=== PATIENT | female | born 1955 | race Caucasian/White ===

== ENCOUNTER 2019-06-21 08:54 | Emergency (ER) | payer MEDICARE ==
--- OUTSIDE RECORDS SUMMARY | 2019-06-21 09:09 | XMS REPORT | Continuity of Care Document ---
:1955 External Reference #:[id number] Author Name Lopez Meka Care Team Providers Name Role Phone Mickey Ortez MD Primary Care Physician Unavailable Payers Date Identification Numbers Payment Provider Subscriber Effective: 2004 Policy Number: [id number] Medicare Sasha Tomlin PayID: [id number] [address] [place] [address] Policy Number: [id number] [facility] Sasha Tomlin PayID: [id number] [address] [place] [address] Problems Active Problems Provider Date Postoperative Wound Closure Encounter Sandro Gonzalez M.D., [facility] Onset: 12/26/2013 Abnormal results of cardiovascular Bucky Guzman M.D. Onset: 01/22/2014 function studies Benign essential hypertension Bucky Guzman M.D. Onset: 01/22/2014 Chest pain Bucky Guzman M.D. Onset: 01/22/2014 Obstructive sleep apnea syndrome Lexii Diego MD Onset: 04/03/2015 Obesity Lexii Diego MD Onset: 10/03/2015 Family History Date Family Member(s) Observation Comments Onset: (03/18/2016) General Coronary Artery Disease Brother with ME's (CAD) before age 50 , 1 brother and sister alive and well General Positive pressure therapy 2 brothers use Father Sleep Apnea 88 Cabg 71 Onset: (age 71 Mother ME of ME 71 Years) Siblings 3 Social History Type Date Description Comments Sex Unknown Marital Status Lives With Spouse no children. homemaker. Occupation Homemaker Tobacco Use Start: Unknown Never Smoked Cigarettes Smoking Status Reviewed: 05/22/19 Never Smoked Cigarettes ETOH Use Denies alcohol use Tobacco Use Start: Unknown Patient has never smoked Recreational Drug Use Denies Drug Use Exercise Type/Frequency Exercises regularly Exercise Type/Frequency Does aerobics 3 times a Water aerobics and week walking in the water Allergies, Adverse Reactions, Alerts Description No Known Drug Allergies Medications Active Medications SIG Qnty Indications Ordering Date Provider Crestor 1 by mouth every 90tabs Bucky Cohen 04/12/2018 5mg Tablets day Viet Guzman Bupropion HCL ER (SR) 300mg - 1 tablet Unknown 10/01/2016 by mouth once a Tablets ER 12HR day Aspir-81 1 by mouth bid Bucky Cohen 03/18/[address] Thomas M.D. Minitran 1 to chest wall 90units R07.9 Bucky Cohen 03/18/2016 0.2mg/HR Patches every morning Viet Guzman 24HR off every night. uses during exercise only 10/05/17 Loratadine 1 po qd prn Bucky Cohen 11/14/2013 10mg Tablets Viet Guzman Gabapentin 2 po tid 180caps Jillian Leon 12/06/2012 300mg Capsules Viet Galvez Ranitidine HCL take one capsule Unknown 150mg by mouth twice a Capsules day, as needed. 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 60tabs Unknown Tablets Verapamil HCL ER 1 tab po daily Unknown 240mg Tablets ER Spironolactone 1 tab po bid Unknown 50mg Tablets 1Hydrochlorothiazide 1 tab po daily Unknown 25mg Tablets History Medications Nitro-Dur 1 patch every day Unknown 10/01/2016 - 0.2mg/HR on in the in the 03/07/2017 Patches 24HR morning, off in the at night Glucosamine 1 by mouth every Bucky Vicki 03/18/2016 - Chondroitin 500 day Viet Guzman 09/30/2018 Complex 500Comp Capsules Tramadol 1-2 tablets every 6 30tabs Sloane Sanon, 06/17/2015 - Hydrochloride/Acetamin hours as needed M.DJosiah 03/17/2016 ophen pain 37.5-325mg Tablets Levaquin 1 by mouth every 10tabs Sloane Snaon, 12/26/2014 - 500mg Tablets day M.DJosiah 03/17/2016 Amlodipine Besylate 1 po qd 3 days 4tabs Bucky Cohen 10/12/2013 - 10mg before and day of Viet Guzman 12/25/2013 Tablets stress test Co Q-10 1 by mouth every Unknown - 200mg Capsules day 03/07/2017 Vitamin E Complex 1 po qd Unknown - 400Unit 04/11/2018 Capsules Crestor 1 by mouth every 90tabs Unknown - 20mg Tablets day 04/12/2018 Protriptyline HCL 1 tab by mouth 60tabs Jillian Galvez, - 10mg twice a day(pt is M.DJosiah 03/07/2017 Tablets no longer taking) Loradamed 1 tab po daily Unknown - 10mg Tablets 11/14/2013 Colace 1 po qd 60caps Unknown - 50mg Capsules 10/05/2017 Cranberry Concentrate 1 tab daily Unknown - 09/30/2018 500mg Capsules Cinnamon 3 tabs bid Unknown - 500mg Tablets 03/17/2016 Hyoscyamine Sulfate po tid prn 50tabs Unknown - sublingual 03/17/2016 0.125mg Tablets Sub Protriptyline HCL 2 tabs po bid Unknown - 5mg 08/21/2013 Tablets Pantoprazole Sodium 1 tab po daily Unknown - 40mg 04/11/2018 Tablets Fluoxetine HCL 1 tab po daily Unknown - 20mg 07/31/2014 Capsules Medications Administered in Office Medication SIG Qnty Indications Ordering Provider Date Depomedrol 40MG Sloane Sanon M.D. 10/27/2018 Injection Depomedrol 20MG Iva Escobar PA 12/09/2009 Injection Immunizations CPT Code Status Date Vaccine Lot # [id number] Given 08/19/2015 Fluvirin Im 3Yrs And Older Vital Signs Date Vital Result Comment 05/22/2019 9:18am Height 64 inches 5'4" Weight 211.00 lb BP Systolic 142 mmHg BP Diastolic 84 mmHg Respiratory Rate 16 /min Body Temperature 98.0 F Pain Level 5 BMI (Body Mass Index) 36.2 kg/m2 01/24/2019 8:31am Height 64 inches 5'4" Weight 205.12 lb Shoes/Clothes Heart Rate 96 /min BP Systolic Sitting 140 mmHg ule Large cuff BP Diastolic Sitting 80 mmHg ule Large cuff BP Systolic Standing 134 mmHg ule lg cuff BP Diastolic Standing 78 mmHg ule lg cuff BP Systolic Lying Down 118 mmHg la repeat sitting BP Diastolic Lying Down 72 mmHg la repeat sitting BMI (Body Mass Index) 35.2 kg/m2 Ejection Fraction REF 55-60% Stress test 05/13/2016 10/27/2018 10:46am Height 64 inches 5'4" Weight 211.25 lb Heart Rate 75 /min BP Systolic 126 mmHg BP Diastolic 80 mmHg Respiratory Rate 18 /min Pain Level 9 BMI (Body Mass Index) 36.3 kg/m2 09/30/2018 9:19am Height 64 inches 5'4" Weight 202.00 lb Heart Rate 80 /min reg BP Systolic Sitting 142 mmHg right lg cuff BP Diastolic Sitting 76 mmHg right lg cuff Respiratory Rate 16 /min BMI (Body Mass Index) 34.7 kg/m2 04/12/2018 8:41am Height 64 inches 5'4" Weight 197.25 lb w/shoes Heart Rate 84 /min BP Systolic Sitting 140 mmHg lue lg cuff BP Diastolic Sitting 80 mmHg lue lg cuff BMI (Body Mass Index) 33.9 kg/m2 Ejection Fraction 60-65% echo 04/28/2016 10/05/2017 8:04am Height 64 inches 5'4" Weight 202.38 lb with shoes Heart Rate 72 /min BP Systolic Sitting 120 mmHg Rue reg cuff BP Diastolic Sitting 78 mmHg Rue reg cuff Respiratory Rate 16 /min O2 % BldC Oximetry 97 % On Ra BMI (Body Mass Index) 34.7 kg/m2 03/08/2017 8:33am Height 64 inches 5'4" Weight 203.00 lb with shoes Heart Rate 90 /min BP Systolic Sitting 122 mmHg LA lrg cuff BP Diastolic Sitting 80 mmHg LA lrg cuff BMI (Body Mass Index) 34.8 kg/m2 Ejection Fraction 60% - 65% echo 04/28/17 10/02/2016 8:41am Height 64 inches 5'4" Weight 206.00 lb per pt Heart Rate 85 /min BP Systolic Sitting 126 mmHg BP Diastolic Sitting 68 mmHg Respiratory Rate 14 /min O2 % BldC Oximetry 96 % BMI (Body Mass Index) 35.4 kg/m2 04/07/2016 2:26pm Height 64 inches 5'4" Weight 215.00 lb with shoes Heart Rate 78 /min BP Systolic Sitting 128 mmHg LA lrg cuff BP Diastolic Sitting 66 mmHg LA lrg cuff BP Systolic Standing 132 mmHg LA lrg cuff BP Diastolic Standing 70 mmHg LA lrg cuff Respiratory Rate 16 /min BMI (Body Mass Index) 36.9 kg/m2 Ejection Fraction 60-65% 11/29/13 03/18/2016 2:58pm Height 64 inches 5'4" Weight 216.00 lb w/shoes Heart Rate 74 /min BP Systolic Sitting 148 mmHg LA lg cuff BP Diastolic Sitting 84 mmHg LA lg cuff BMI (Body Mass Index) 37.1 kg/m2 Ejection Fraction 60-65% [place] 11/29/13 10/03/2015 8:19am Height 64 inches 5'4" Weight 215.00 lb Heart Rate 89 /min BP Systolic Sitting 136 mmHg BP Diastolic Sitting 78 mmHg Respiratory Rate 18 /min O2 % BldC Oximetry 96 % BMI (Body Mass Index) 36.9 kg/m2 07/15/2015 9:35am Height 64 inches 5'4" Weight 210.00 lb Respiratory Rate 18 /min Body Temperature 98.7 F Pain Level 3 BMI (Body Mass Index) 36.0 kg/m2 06/17/2015 11:37am Height 64 inches 5'4" Weight 210.00 lb Pain Level 4 ranges from 1 to 8 BMI (Body Mass Index) 36.0 kg/m2 04/03/2015 8:04am Height 64 inches 5'4" Weight 213.44 lb BP Systolic 80 mmHg BP Systolic Sitting 134 mmHg BP Diastolic Sitting 70 mmHg Respiratory Rate 18 /min O2 % BldC Oximetry 96 % BMI (Body Mass Index) 36.6 kg/m2 01/21/2015 2:18pm Height 64 inches 5'4" Weight 200.00 lb Pain Level 3 BMI (Body Mass Index) 34.3 kg/m2 12/31/2014 1:57pm Height 64 inches 5'4" Weight 200.00 lb Pain Level 2 BMI (Body Mass Index) 34.3 kg/m2 12/17/2014 4:01pm Height 64 inches 5'4" Weight 200.00 lb Heart Rate 79 /min BP Systolic 136 mmHg BP Diastolic 83 mmHg Pain Level 5 BMI (Body Mass Index) 34.3 kg/m2 08/27/2014 12:06pm Height 64 inches 5'4" Weight 200.00 lb Heart Rate 92 /min BP Systolic Sitting 142 mmHg BP Diastolic Sitting 78 mmHg Respiratory Rate 18 /min O2 % BldC Oximetry 97 % BMI (Body Mass Index) 34.3 kg/m2 Neck Circumference in inches 13.25 08/01/2014 11:00am Height 64 inches 5'4" Weight 195.25 lb Heart Rate 86 /min BP Systolic Sitting 138 mmHg LA lg cuff BP Diastolic Sitting 82 mmHg LA lg cuff Respiratory Rate 14 /min BMI (Body Mass Index) 33.5 kg/m2 01/22/2014 1:07pm Heart Rate 96 /min BP Systolic Sitting 128 mmHg BP Diastolic Sitting 76 mmHg 12/26/2013 3:24pm Height 64 inches 5'4" Weight 201.00 lb with shoes Heart Rate 82 /min BP Systolic Sitting 130 mmHg LA reg cuff BP Diastolic Sitting 82 mmHg LA reg cuff BP Systolic Standing 128 mmHg LA reg cuff BP Diastolic Standing 80 mmHg LA reg cuff Respiratory Rate 17 /min BMI (Body Mass Index) 34.5 kg/m2 08/21/2013 8:43am Heart Rate 96 /min BP Systolic Sitting 124 mmHg BP Diastolic Sitting 78 mmHg Respiratory Rate 18 /min Results Test Date Facility Test Result H/L Range Note Surgical Pathology 12/21/2014 [facility] S RUN DATE: DRIVE 12/25/ <[place] [address] NOTE> [phone] Wound 12/21/2014 [facility] Wound/Misc (SEE NOTE) 2, 3 Culture/Sensi [address] [place] [address] Stain [phone] Laboratory test 12/21/2014 [facility] Acid Fast (SEE NOTE) [address] [place] [address] Direct [phone] Anaerobic Culture (SEE NOTE) 5 Fungal Cult Skin/Hair/Nails (SEE NOTE) 6 Fungus Culture 12/21/2014 [facility] Fungal Cult (SEE NOTE) [address] Skin/[place]air/[place] [address] [phone] Fungus Culture 12/21/2014 [facility] Fungal Cult (SEE NOTE) [address] Skin/[place] [address] [phone] Laboratory 12/21/2014 [facility] Mycobacterial See Comment Normal 9 test finding [address] [place] [address] [phone] CBC No Diff 12/15/2013 [facility] White Blood Count 6.1 10^3/uL 4.[address] [place] [address] .8 [phone] Red Blood Count 4.92 10^6/uL 4.0-5.4 Hemoglobin 13.3 g/dL 12.0-16.0 Hematocrit 41 % 35-47 Mean Corpuscular Volume 84 fL 80-97 Mean Corpuscular Hemoglobin 27 pg 27-31 Mean Corpuscular HGB Conc 32 g/dL 31-36 Red Cell Distribution Width 13 % 10.5-15 Platelet Count 293 10^3/uL 150-450 Mean Platelet Volume 9 um3 7.4-10.4 Basic Metabolic Panel 12/15/2013 [facility] Sodium 138 mmol/L 133-[address] [place], [place] [address] [phone] Potassium 3.9 mmol/L 3.7-5.6 Chloride 102 mmol/L 101-111 Co2 Carbon Dioxide 31 mmol/L 22-32 Anion Gap 5 mmol/L 2-11 Glucose 87 mg/dL 70-100 Blood Urea Nitrogen 14 mg/dL 6-24 Creatinine 0.92 mg/dL 0.51-0.95 BUN/Creatinine Ratio 15.2 8-20 Calcium 9.7 mg/dL 8.6-10.3 Egfr Non- 62.7 >60 Egfr 80.6 >60 10 Laboratory 12/15/2013 [facility] Activated 29.2 24.0-36.1 test finding [address] [facility] [place] [address] Thrombo Time [phone] Inr/Protime 12/15/2013 [facility] Inr 0.94 0.85-1.06 [address] [place], [place] [address] [phone] Creatinine 12/13/2013 [facility] Creatinine 1.10 mg/dL High 0.51-0.95 [address] [place] [address] [phone] Egfr Non- 51.0 >60 Egfr 65.6 >60 11 Laboratory test 12/13/2013 [facility] Blood Urea 18 mg/dL 6- 24 finding [address] [facility] [place] [address] [phone] 1 RUN DATE: 12/25/14 [facility] LAB LIVE PAGE 1 RUN TIME: 1359 [address] [place], [place] [address] Specimen Inquiry Name: SASHA TOMLIN : [address]: Sloane Sanon MD Acct: [id number] Unit: [id number] AGE: 59 Location: OR Re12/21/14 SEX: F [place] [facility] [place]C: [id number] RALPH: 12/21/14- SUBM DR: Sloane Sanon MD REQ: [id number] RECD: 12/21/14 STATUS: SOUT _ ORDERED: PASS STAIN/2, GMSS/2, Decal, LEVEL III/2 FINAL DIAGNOSIS 1. Right thumbnail and paronychia, excision: -- Onychomycosis, dermatophyte species. 2. Right thumb nailbed, biopsies: -- Fibrovascular and adipose tissue with mild chronic inflammation and fibrosis. COMMENT: GMS and PAS stains, with appropriately reacting controls, were performed on blocks 1A and 1B and are positive in the thumbnail (block 1A), supporting the diagnosis. PRE-OPERATIVE DIAGNOSIS Chronic paronychia right thumb GROSS DESCRIPTION 1. The specimen is received in formalin labeled, Right Thumbnail and Paronychia, and consists of two see-white irregular keratotic tissue fragments measuring 1.6 x 0.7 x 0.2 cm and 1.8 x 1.0 x 0.2 cm consistent with a fragmented unguis. Received separately in the same container is a 1.4 x 0.4 cm servin white unoriented skin ellipse excised to a depth of 0.2 cm. The skin specimen is inked, the specimen is sectioned and accounting representative sections are submitted in cassettes A and B to include unguis following softening in cassette A. 2. The specimen is received in formalin labeled, Right Thumbnail Bed, and consists of a 0.4 x 0.3 x 0.2 cm see-pink irregular soft tissue fragment, which is submitted entirely in one cassette. CONTINUED ON NEXT PAGE * ML = Testing performed at Main Lab DEPARTMENT OF PATHOLOGY, [facility] [address] [place], [place] [address] Brandon Quintana M.D. Director [facility] # [id number] RUN DATE: 12/25/14 [facility] LAB LIVE PAGE 2 RUN TIME: 9945 [facility] [employer] [place], [place] [address] Specimen Inquiry Patient: SASHA TOMLIN [id number] (Continued) MICROSCOPIC DESCRIPTION (Continued) MICROSCOPIC DESCRIPTION . Signed (signature on file) Loretta Romero MD 08/01 1359 END OF REPORT * ML = Testing performed at Main Lab DEPARTMENT OF PATHOLOGY, [facility] [address] [place], [place] [address] Brandon Quintana M.D. Director [facility] # [id number] RIGHT THUMB NAIL 3 RUN DATE: 12/24/14 [facility] LAB LIVE PAGE 1 RUN TIME: 4166 [facility] [employer] [place], [place] [address] Specimen Inquiry Name: SASHA TOMLIN : [address]: Sloane Sanon MD Acct: [id number] Unit: [id number] AGE: 59 Location: OR Re12/21/14 SEX: F Status: REG SDC SPEC: [id number] RALPH: 12/21/[address] [facility] [address]: Sloane Sanon MD REQ: [id number] RECD: 12/21/14 STATUS: JOE LANGFORD DR: Mickey Ortez MD _ SOURCE: WOUND SPDESC:THUMB RHT ORDERED: Culture Stain COMMENTS: RIGHT THUMB NAIL QUERIES: Specimen Description RT THUMB NAIL Procedure Result Verified Site Wound/Misc Gram Stain Final 12/21/14- 1613 L 3+ Epithelial Cells 1+ Neutrophils No Organisms Seen Wound/Misc Culture Final 12/24/14- 1115 L Organism 1 KLEBSIELLA OXYTOCA Quantity 1+ Organism 2 NORMAL CESAR Quantity 1+ CONTINUED ON NEXT PAGE RUN DATE: 12/24/14 [facility] LAB LIVE PAGE 2 RUN TIME: [address] [place] [address] Specimen Inquiry Patient: ALICIA TOMLINMANGO Gauthier [id number] (Continued) Specimen: [id number] Collected: 12/21/14 Received: 12/21/14-1206 (Continued) Procedure Result Verified Site * ML = Testing performed at Main Lab DEPARTMENT OF PATHOLOGY, [address], [place] [address] Brandon Quintana M.D. Director [facility] # [id number] RUN DATE: 12/24/14 [facility] LAB LIVE PAGE 3 RUN TIME: 111[address] [place], [place] [address] Specimen Inquiry Patient: RIVASBETHSASHA [id number] (Continued) Specimen: [id number] Collected: 12/21/14 Received: 12/21/14-120 (Continued) Procedure Result Verified Site Wound/Misc Culture Final (continued) 12/24/14- 1115 1. KLEBSIELLA OXYTOCA M.I.C. RX --------- ------ Ampicillin >=32 R Cefazolin 16 I Cefepime <=1 S Ceftriaxone <=1 S Ciprofloxacin <=0.25 S Gentamicin <=1 S Levofloxacin <=0.12 S Meropenem <=0.25 S Nitrofurantoin 32 S Tetracycline <=1 S Pipercillin/Tazobactam <=4 S Trimethoprim/Sulfamethoxazole <=20 S Amoxicillin/Clavulanic Acid <=2 S Aztreonam <=1 S Contact the Microbiology Department for any additional antibiotic reporting. END OF REPORT * ML = Testing performed at Main Lab DEPARTMENT OF PATHOLOGY, [facility] [address] [place] [address] Brandon Quintana M.D. Director [facility] # [id number] RUN DATE: 12/21/14 [facility] LAB LIVE PAGE 1 RUN TIME: 1632 [facility] [employer] [place], [place] [address] Specimen Inquiry Name: SASHA TOMLIN : [address]: Sloane Sanon MD Acct: [id number] Unit: [id number] AGE: 59 Location: OR Re/06/15 SEX: F Status[place] [facility] SPEC: [id number] RALPH: 12/21/14-[address] [facility] [address]: Sloane Sanon MD REQ: [id number] RECD: 12/21/14 STATUS: JOE JAMES DR: Mickey Ortez MD _ SOURCE: NO SOURCE SPDESC: ORDERED: Acid Fast Stain COMMENTS: RIGHT THUMB NAIL Procedure Result Verified Site Acid Fast Stain - Direct Final 12/21/14- 1632 L AFB Smear Result No Acid Fast Bacillus Present (Negative) Preparation By Direct Smear Due to limited sensitivity of the smear, results should be used as an adjunct in evaluating the patient's status and cultural examination is highly recommended for diagnosis. END OF REPORT * ML = Testing performed at Main Lab DEPARTMENT OF PATHOLOGY, [facility] [address] [place], [place] [address] Brandon Quintana M.D. Director [facility] # [id number] 5 RUN DATE: 12/25/14 [facility] LAB LIVE PAGE 1 RUN TIME: 1054 [facility] [employer] [place], [place] [address] Specimen Inquiry Name: SASHA TOMLIN : [address]: Sloane Sanon MD Acct: [id number] Unit: [id number] AGE: 59 Location: OR Re12/21/14 SEX: F Status: REG SDC SPEC: [id number] RALPH: 12/21/14-[address] [facility] [address]: Sloane Sanon MD REQ: [id number] RECD: 12/21/14-1206 STATUS: JOE LANGFORD DR: Mickey Ortez MD _ SOURCE: [facility] SPDESC:OTHER ORDERED: Anaerobic Cult COMMENTS: RIGHT THUMB NAIL Procedure Result Verified Site Anaerobic Culture Final 12/25/14- 1054 L Anaerobe Culture No Anaerobes Day 4 END OF REPORT * ML = Testing performed at Main Lab DEPARTMENT OF PATHOLOGY, [facility] [address] [place], [place] [address] Brandon Quintana M.D. Director [facility] # [id number] 6 RUN DATE: 12/31/14 [facility] LAB LIVE PAGE 1 RUN TIME: 6159 [facility] [employer] [place], [place] [address] Specimen Inquiry Name: SASHA TOMLIN : [address]: Sloane Sanon MD Acct: [id number] Unit: [id number] AGE: 59 Location: OR Re12/21/14 SEX: F Status: REG SDC SPEC: [id number] RALPH: 12/21/14-[address]: Sloane Sanon MD REQ: [id number] RECD: 12/21/14 STATUS: RES PRIMITIVO DR: Mickey Ortez MD _ SOURCE: FINGERNAIL SPDESC: ORDERED: Fungal Cult Naeem COMMENTS: RIGHT THUMB NAIL Procedure Result Verified Site Fungal Cult Skin/Hair/Nails Preliminary 12/31/14- 1448 L No Growth Week 2 END OF REPORT * ML = Testing performed at Main Lab DEPARTMENT OF PATHOLOGY, [facility] [address] [place], [place] [address] Brandon Quintana M.D. Director [facility] # [id number] 7 RUN DATE: 01/07/15 [facility] LAB LIVE PAGE 1 RUN TIME: 1334 [facility] [employer] [place], [place] [address] Specimen Inquiry Name: SASHA TOMLIN : [address]: Sloane Sanon MD Acct: [id number] Unit: [id number] AGE: 59 Location: OR Re12/21/14 SEX: F Status: REG SDC SPEC: [id number] RALPH: 12/21/14-[address] [facility] [address]: Sloane Sanon MD REQ: [id number] RECD: 12/21/141206 STATUS: RES [facility] : Mickey Ortez MD _ SOURCE: FINGERNAIL SPDESC: ORDERED: Fungal Cult Skn COMMENTS: RIGHT THUMB NAIL Procedure Result Verified Site Fungal Cult Skin/Hair/Nails Preliminary 01/07/15- 1332 ML No Growth Week 3 * ML - MAIN LAB ([facility]) . Brandon Rosales M.D. END OF REPORT * ML = Testing performed at Main Lab DEPARTMENT OF PATHOLOGY, [facility] [place] [address] Brandon Quintana M.D. Director [facility] # [id number] RUN DATE: 01/14/15 [facility] LAB LIVE PAGE 1 RUN TIME: 1145 [facility] [employer] [place], [place] [address] Specimen Inquiry Name: SASHA TOMLIN : [address]: Sloane Sanon MD Acct: [id number] Unit: [id number] AGE: 59 Location: OR Re12/21/14 SEX: F Status: REG SDC SPEC: [id number] RALPH: 12/21/14-[address] [facility] [address]: Sloane Sanon MD REQ: [id number] RECD: 12/21/14 STATUS: JOE LANGFORD DR: Mickey Ortez MD _ SOURCE: FINGERNAIL SPDESC: ORDERED: Fungal Cult Skn COMMENTS: RIGHT THUMB NAIL Procedure Result Verified Site Fungal Cult Skin/Hair/Nails Final 01/14/15- 1145 ML No Growth Week 4 * ML - [facility]) . END OF REPORT * ML = Testing performed at Main Lab DEPARTMENT OF PATHOLOGY, [address] [address] Brandon Quintana M.D. Director [facility] # [id number] SOURCE: THUMB, RIGHT THUMB NAIL SWAB MYCOBACTERIAL CULTURE FINAL No Growth after 60 days of incubation. Test Performed by: [place] [address] Chief Librarian Branch: Grant Christianson II, M.D., Ph.D. 10 Because ethnic data is not always readily available, this report includes an eGFR for both -Americans and non- Americans. The National Kidney Disease Education Program (NKDEP) does not endorse the use of the MDRD equation for patients that are not between the ages of 18 and 70, are , have extremes of body size, muscle mass, or nutritional status, or are non- or non-. According to the National Kidney Foundation, irrespective of diagnosis, the stage of the disease is based on the level of kidney function: Stage Description GFR(mL/min/1.73 m(2)) 1 Kidney damage with normal or decreased GFR 90 2 Kidney damage with mild decrease in GFR 60-89 3 Moderate decrease in GFR 30-59 4 Severe decrease in GFR 15-29 5 Kidney failure <15 (or dialysis) 11 Because ethnic data is not always readily available, this report includes an eGFR for both -Americans and non- Americans. The National Kidney Disease Education Program (NKDEP) does not endorse the use of the MDRD equation for patients that are not between the ages of 18 and 70, are , have extremes of body size, muscle mass, or nutritional status, or are non- or non-. According to the National Kidney Foundation, irrespective of diagnosis, the stage of the disease is based on the level of kidney function: Stage Description GFR(mL/min/1.73 m(2)) 1 Kidney damage with normal or decreased GFR 90 2 Kidney damage with mild decrease in GFR 60-89 3 Moderate decrease in GFR 30-59 4 Severe decrease in GFR 15-29 5 Kidney failure <15 (or dialysis) Procedures Date Code Description Status 01/24/2019 33963 EKG Tracing & Interpretation Completed 10/27/2018 40522 Inject Tendon Sheath Or Ligament Aponeurosis Eg Completed Plantar Fascia 04/12/2018 98212 EKG Tracing & Interpretation Completed 03/08/2017 22316 EKG Tracing & Interpretation Completed 05/13/2016 76633 ECHO Stress Test Incl Perf Contiuous ekg Monitoring Completed W/Phys Superv 04/28/2016 04130 ECHO Transthoracic, Real-Time 2D With Doppler And Completed Color Flow 03/18/2016 74732 EKG Tracing & Interpretation Completed 07/02/2015 71291 Trigger Finger Release Incision / Tendon Sheath Completed Incision 07/02/2015 39357 Trigger Finger Release Incision / Tendon Sheath Completed Incision 12/21/2014 25250 Carpal Tunnel Release Completed 12/21/2014 44287 Biopsy Nail Unit, Any Method Completed 08/01/2014 30139 EKG Tracing & Interpretation Completed 01/22/2014 72695 EKG Tracing & Interpretation Completed 12/19/2013 76452 Left Heart Cath. Incl S/I Coronaries, Angio S/I V Gram Completed If Done 12/19/2013 52180 EKG, Interpretation Only Completed 12/11/2013 63395 Treadmill Interp/Report Only Completed 12/11/2013 28821 Stress Test Supervsn W/Out I/R Completed 11/29/2013 14817 ECHO Transthoracic, Real-Time 2D With Doppler And Completed Color Flow 11/14/2013 20113 Stress Test Completed 12/09/2009 19251 Rad Exam; Hand Comp Completed 12/09/200977869 Inject Tendon Sheath Or Ligament Aponeurosis Eg Completed Plantar Fascia 04/22/2006 266248501 Bone Mineral Density Test Completed 09/24/2004 77122 ECHO/Stress Completed 09/24/2004 21291 Treadmill Interp/Report Only Completed 09/24/2004 37265 Stress Test Supervsn W/Out I/R Completed Encounters Type Date Location Provider Dx Diagnosis Office Visit 01/24/2019 [facility] Bucky Cohen I25.118 Athscl heart 8:40a Azucena Guzman. disease of [place] cor art w oth ang pctrs G47.33 Obstructive sleep apnea (adult) (pediatric) E66.9 Obesity, unspecified R07.9 Chest pain, unspecified I10 Essential (primary) hypertension E78.00 Pure hypercholesterolemia, unspecified Office Visit 10/27/2018 [facility] M65.4 Radial styloid 10:30a Services Of Viet Sanon tenosynovitis [Calderon] Office Visit 09/30/2018 [facility] Claudia G47.33 Obstructive sleep 9:15a Sleep Services Of KISHOR Strong RN, apnea (adult) [facility] (pediatric) E66.9 Obesity, unspecified Z68.34 Body mass index (BMI) 34.0-34.9, adult Office Visit 04/12/2018 9:00a [facility] Bucky Cohen G47.33 Obstructive sleep Viet Guzman apnea (adult) (pediatric) R07.9 Chest pain, unspecified 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 E78.00 Pure hypercholesterolemia, unspecified M79.1 Myalgia Office Visit 10/05/2017 [facility] Claudia G47.33 Obstructive sleep 8:00a Sleep Services Of KISHOR Strong RN, apnea (adult) [facility]- (pediatric) E66.9 Obesity, unspecified Z68.34 Body mass index (BMI) 34.0-34.9, adult Office Visit 03/08/2017 8:40a [facility] Bucky Cohen R07.9 Chest pain, Viet Guzman unspecified I10 Essential (primary) hypertension E78.01 Familial hypercholesterolemia E66.9 Obesity, unspecified Office Visit 10/02/2016 8:30a Pulmonology And Lexii G47.33 Obstructive sleep Sleep Services Of MD Brandie apnea (adult) [facility] (pediatric) E66.09 Other obesity due to excess calories Office Visit 04/07/2016 3:00p [facility] Janell Nieto, I10 Essential (primary) Of [facility] [place] hypertension G47.33 Obstructive sleep apnea (adult) (pediatric) R07.9 Chest pain, unspecified E66.09 Other obesity due to excess calories I25.10 Athscl heart disease of [place] coronary artery w/o ang pctrs Office Visit 03/18/2016 2:40p [facility] Bucky Cohen G47.33 Obstructive sleep Viet Guzman apnea (adult) (pediatric) I10 Essential (primary) hypertension R07.9 Chest pain, unspecified E78.0 Pure hypercholesterolemia Office Visit 10/03/2015 8:30a [facility] And Lexii G47.33 Obstructive sleep Sleep Services Of MD Brandie apnea (adult) [employer] (pediatric) E66.09 Other obesity due to excess calories Office Visit 06/17/2015 [facility] 727.03 Trigger Finger 11:20a Services Of Viet Sanon Acquired C.M.A. Office Visit 04/03/2015 Pulmonology And Lexiimushtaq Diego, 327.23 Obstructive Sleep 8:15a Sleep Services Of Apnea Adult & [facility] Pediatric Office Visit 12/17/2014 [facility] 354.0 Carpal Tunnel 4:00p Services Of Viet Sanon Syndrome C.M.A. 681.02 Onychia & Paronychia Finger Office Visit 08/27/2014 11:45a [facility] Lexii 327.23 Obstructive Sleep Sleep Services Of MD Brandie Apnea Adult & [facility] Pediatric Office Visit 08/01/2014 10:40a [facility] Bucky Cohen 786.59 Pain Chest Other Viet Guzman 401.1 Hypertension Benign Office Visit 01/22/2014 Jatin Cohen 794.39 Cardiovascular Study 1:20p Cardiology Viet Guzman Other Abnormal 401.1 Hypertension Benign 786.50 Pain Chest Unspec Office Visit 12/26/2013 Kelley Gonzalez, V58.41 Postoperative Wound 3:30p Cardiology Cesar Llanos, FACC, Closure Encounter Photographic Colorist AT [facility] Office Visit 11/14/2013 Jatin Cohen 786.50 Pain Chest Unspec 10:30a Cardiology Viet Guzman 401.1 Hypertension Benign Office Visit 08/21/2013 8:30a Jatin Leon 346.90 Migraine Unspec Neurologic Viet Galvez W/O Intractable Services Of Lorne W/O Status Migrainosus 323.9 Unspec Cause Encephalitis, Myelitis, Encephalomyelitis Office Visit 08/23/2012 10:45a [facility] Jillian Galvez, 784.0 Headache Services Of Lorne Llanos 323.9 Unspec Cause Encephalitis, Myelitis, Encephalomyelitis Office Visit 12/09/2009 10:00a Orthopedic Iva Escobar, 727.05 Tenosynovitis Hand Services Of [place] & Wrist [facility] C.M.A. Plan of Treatment Future Appointment(s):07/03/2019 8:00 am - Sloane Sanon M.D. at Orthopedic Services Of C.M.A.10/02/2019 9:00 am - Claudia Strong DNP, RN, BUSINESS ADMINISTRATOR-BC at Pul[facility]ology [facility]05/22/2019 - Sloane Sanon M.D.M75.41 Impingement syndrome of right shoulderNew Therapy:Physical TherapyFollow up: Follow up: 6 weeks
--- OUTSIDE RECORDS SUMMARY | 2019-06-21 09:09 | XMS REPORT | Continuity of Care Document ---
:1955 External Reference #:[id number] Author Name Lopez Meka Care Team Providers Name Role Phone Mickey Ortez MD Primary Care Physician Unavailable Payers Date Identification Numbers Payment Provider Subscriber Effective: 2004 Policy Number: [id number] Medicare Sasha Tomlin PayID: [id number] [address] [place] [address] Policy Number: [id number] [facility] Sasha Tomlin PayID: [id number] [address] [place] [address] Problems Active Problems Provider Date Postoperative Wound Closure Encounter Sandro Gonzalez M.D., [facility] Onset: 12/26/2013 Abnormal results of cardiovascular Bucky Guzman M.D. Onset: 01/22/2014 function studies Benign essential hypertension Bucky Guzman M.D. Onset: 01/22/2014 Chest pain Bucky Guzman M.D. Onset: 01/22/2014 Obstructive sleep apnea syndrome Lexii Diego MD Onset: 04/03/2015 Obesity Lexii Diego MD Onset: 10/03/2015 Family History Date Family Member(s) Observation Comments Onset: (03/18/2016) General Coronary Artery Disease Brother with HI's (CAD) before age 50 , 1 brother and sister alive and well General Positive pressure therapy 2 brothers use Father Sleep Apnea 88 Cabg 71 Onset: (age 71 Mother HI of HI 71 Years) Siblings 3 Social History Type Date Description Comments Sex Unknown Marital Status Lives With Spouse no children. homemaker. 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 60tabs [...] Levaquin 1 by mouth every 10tabs Sloane Sanon, 12/26/2014 - 500mg Tablets day M.DJosiah 03/17/2016 [...] Older Vital Signs Date Vital Result Comment 05/25/2019 1:06pm Height 64 inches 5'4" Weight 210.00 lb Heart Rate 80 /min BP Systolic 130 mmHg BP Diastolic 72 mmHg Respiratory Rate 14 /min Pain Level 5 BMI (Body Mass Index) 36.0 kg/m2 05/22/2019 9:18am Height 64 inches 5'4" Weight [...] Result H/L Range Note Surgical Pathology 12/21/2014 [facility] S RUN DATE: [address] 12/25/ <[place] [address] NOTE> [phone] Wound 12/21/2014 [facility] Wound/Misc (SEE NOTE) 2, 3 Culture/Sensi [address] [place] [address] Stain [phone] Laboratory test 12/21/2014 [facility] Acid Fast (SEE NOTE) [address] [place] [address] Direct [phone] Anaerobic Culture (SEE NOTE) 5 Fungal Cult Skin/Hair/Nails (SEE NOTE) 6 Fungus Culture 12/21/2014 [facility] Fungal Cult (SEE NOTE) [address] Skin/Hair/[place] [address] [phone] Fungus Culture 12/21/2014 [facility] Fungal Cult (SEE NOTE) [address] Skin/Hair/[place] [address] [phone] Laboratory 12/21/2014 [facility] Mycobacterial See Comment Normal 9 test finding [address] Culture [place], [place] [address] [phone] CBC No Diff 12/15/2013 [facility] White Blood Count 6.1 10^3/uL 4.[address] -10 [place] [address] .8 [phone] Red Blood Count 4.92 10^6/uL 4.0-5.4 Hemoglobin 13.3 g/dL 12.0-16.0 Hematocrit 41 % 35-47 Mean Corpuscular Volume 84 fL 80-97 Mean Corpuscular Hemoglobin 27 pg 27-31 Mean Corpuscular HGB Conc 32 g/dL 31-36 Red Cell Distribution Width 13 % 10.5-15 Platelet Count 293 10^3/uL 150-450 Mean Platelet Volume 9 um3 7.4-10.4 Basic Metabolic Panel 12/15/2013 [facility] Sodium 138 mmol/L 133-[address] [place], [place] [address] [phone] Potassium 3.9 mmol/L 3.7-5.6 Chloride 102 mmol/L 101-111 Co2 Carbon Dioxide 31 mmol/L 22-32 Anion Gap 5 mmol/L 2-11 Glucose 87 mg/dL 70-100 Blood Urea Nitrogen 14 mg/dL 6-24 Creatinine 0.92 mg/dL 0.51-0.95 BUN/Creatinine Ratio 15.2 8-20 Calcium 9.7 mg/dL 8.6-10.3 Egfr Non- 62.7 >60 Egfr 80.6 >60 10 Laboratory 12/15/2013 [facility] Activated 29.2 24.0-36.1 test finding [address] [place] [address] Thrombo Time [phone] Inr/Protime 12/15/2013 [facility] Inr 0.94 0.85-1.06 [address] [place] [address] [phone] Creatinine 12/13/2013 [facility] Creatinine 1.10 mg/dL High 0.51-0.95 [address] [place] [address] [phone] Egfr Non- 51.0 >60 Egfr 65.6 >60 11 Laboratory test 12/13/2013 [facility] Blood Urea 18 mg/dL 6- 24 finding [address] [facility] [place] [address] [phone] 1 RUN DATE: 12/25/14 [facility] LAB LIVE PAGE 1 RUN TIME: 1352 [address] [place], [place] [address] Specimen Inquiry Name: SASHA TOMLIN : [address]: Sloane Sanon MD Acct: [id number] Unit: [id number] AGE: 59 Location: OR Re12/21/14 SEX: F Status: REG SDC SPEC: [id number] RALPH: 12/21/14- SUBM DR: Sloane Sanon MD REQ: [id number] RECD: 12/21/141202 STATUS: SOUT _ ORDERED: PASS STAIN/2, GMSS/2, [...] is inked, the specimen is sectioned and sales representative health insurance sections are submitted in cassettes A and [...] performed at Main Lab DEPARTMENT OF PATHOLOGY, [address] [place] [address] Brandon Quintana M.D. Director [facility] # [id number] RUN DATE: 12/25/14 [facility] LAB LIVE PAGE 2 RUN TIME: 9788 [address] [place], [place] [address] Specimen Inquiry Patient: SASHA TOMLIN [id number] (Continued) MICROSCOPIC DESCRIPTION (Continued) MICROSCOPIC DESCRIPTION . Signed (signature on file) Loretta Romero MD 08/01 1359 END OF REPORT * ML = Testing performed at Main Lab DEPARTMENT OF PATHOLOGY, [facility] [address] [place], [place] [address] Brandon Quintana M.D. Director [facility] # [id number] 2 RIGHT THUMB NAIL 3 RUN DATE: 12/24/14 [facility] LAB LIVE PAGE 1 RUN TIME: 2938 [address] [place], [place] [address] Specimen Inquiry Name: SASHA TOLMIN : [address]: Sloane Sanon MD Acct: [id number] Unit: [id number] AGE: 59 Location: OR Re12/21/14 SEX: F Status: REG SDC SPEC: [id number] RALPH: 12/21/14 [facility] [address]: Sloane Sanon MD REQ: [id number] RECD: 12/21/146 STATUS: JOE LANGFORD DR: Mickey Ortez MD [...] CONTINUED ON NEXT PAGE RUN DATE: 12/24/14 [facility] LAB LIVE PAGE 2 RUN TIME: [address] [place] [address] Specimen Inquiry Patient: SASHA TOMLIN [id number] (Continued) Specimen: [id number] Collected: 12/21/14 Received: 12/21/14-1205 (Continued) Procedure Result Verified Site * ML = Testing performed at Main Lab DEPARTMENT OF PATHOLOGY, [facility] [address] [place], [place] [address] Brandon Quintana M.D. Director [facility] # [id number] RUN DATE: 12/24/14 [facility] LAB LIVE PAGE 3 RUN TIME: 5805 [facility] [employer] [place], [place] [address] Specimen Inquiry Patient: SASHA TOMLIN [id number] (Continued) Specimen: [id number] Collected: 12/21/14 Received: 12/21/14-120 (Continued) Procedure Result [...] performed at Main Lab DEPARTMENT OF PATHOLOGY, [facility] [address] [place], [place] [address] Brandon Quintana M.D. Director [facility] # [id number] 4 RUN DATE: 12/21/14 [facility] LAB LIVE PAGE 1 RUN TIME: [address] [place] [address] Specimen Inquiry Name: SASHA TOMLIN : [address]: Sloane Sanon MD Acct: [id number] Unit: [id number] AGE: 59 Location: OR Re12/21/14 SEX: F Status: REG [facility] SPEC: [id number] RALPH: 12/21/14-[address]: Sloane Sanon MD REQ: [id number] RECD: 12/21/14-1206 STATUS: [facility] DR: Mickey Ortez MD _ SOURCE: NO [...] performed at Main Lab DEPARTMENT OF PATHOLOGY, [facility] [address] [place], [place] [address] Brandon Quintana M.D. Director [facility] # [id number] 5 RUN DATE: 12/25/14 [facility] LAB LIVE PAGE 1 RUN TIME: 1054 [facility] [employer] [place], [place] [address] Specimen Inquiry Name: SASHA TOMLIN : [address]: Sloane Sanon MD Acct: [id number] Unit: [id number] AGE: 59 Location: OR Re12/21/14 SEX: F Status: REG SDC SPEC: [id number] RALPH: 12/21/14-1121 [facility] [address]: Sloane Sanon MD REQ: [id number] RECD: 12/21/14-1206 STATUS: JOE JAMES DR: Mickey Ortez MD _ SOURCE: MISC SOURC SPDESC:OTHER ORDERED: Anaerobic Cult COMMENTS: RIGHT THUMB NAIL Procedure Result Verified Site Anaerobic Culture Final 12/25/14- 1054 L Anaerobe Culture No Anaerobes Day 4 END OF REPORT * ML = Testing performed at Main Lab DEPARTMENT OF PATHOLOGY, [facility] [address] [place], [place] [address] Brandon Quintana M.D. Director [facility] # [id number] 6 RUN DATE: 12/31/14 [facility] LAB LIVE PAGE 1 RUN TIME: 5276 [facility] [employer] [place], [place] [address] Specimen Inquiry Name: SASHA TOMLIN : [address]: Sloane Sanon MD Acct: [id number] Unit: [id number] AGE: 59 Location: OR Re12/21/14 SEX: F Status: REG SDC SPEC: [id number] RALPH: 12/21/14-1120 [facility] [address]: Sloane Sanon MD REQ: [id number] RECD: 12/21/14 STATUS: RES [facility] DR: Mickey Ortez MD _ SOURCE: FINGERNAIL SPDESC: ORDERED: Fungal Cult Skvamsi COMMENTS: RIGHT THUMB NAIL Procedure Result Verified Site Fungal Cult Skin/Hair/Nails Preliminary 12/31/14- 144 L No Growth Week 2 END OF REPORT * ML = Testing performed at Main Lab DEPARTMENT OF PATHOLOGY, [facility] [address] [place], [place] [address] Brandon Quintana M.D. Director [facility] # [id number] 7 RUN DATE: 01/07/15 [facility] LAB LIVE PAGE 1 RUN TIME: 1334 [facility] [address] [place], [place] [address] Specimen Inquiry Name: ALICIA TOMLINMANGO Gauthier : [address]: Sloane Sanon MD Acct: [id number] Unit: [id number] AGE: 59 Location: OR Re12/21/14 SEX: F Status: REG SDC SPEC: [id number] RALPH: 12/21/14-1[address] [facility] [address]: Sloane Sanon MD REQ: [id number] RECD: 12/21/14120 STATUS: RES [facility] DR: Mickey Ortez MD _ SOURCE: FINGERNAIL SPDESC: ORDERED: Fungal Cult Skn COMMENTS: RIGHT THUMB NAIL Procedure Result Verified Site Fungal Cult Skin/Hair/Nails Preliminary 01/07/15- 4353 ML No Growth Week 3 * ML - MAIN LAB ([facility]1) . Brandon Rosales M.D. END OF REPORT * ML = Testing performed at Main Lab DEPARTMENT OF PATHOLOGY, [facility] [address] [place], [place] [address] Brandon Quintana M.D. Director [facility] # [id number] RUN DATE: 01/14/15 [facility] LAB LIVE PAGE 1 RUN TIME: [address] [place] [address] Specimen Inquiry Name: SASHA TOMLIN : [address]: Sloane Sanon MD Acct: [id number] Unit: [id number] AGE: 59 Location: OR Re12/21/14 SEX: F Status: REG SDC SPEC: [id number] RALPH: 12/21/14-1 [facility] DR: Sloane Sanon MD REQ: [id number] RECD: 12/21/14-1206 STATUS: JOE LANGFORD DR: Mickey Ortze MD _ SOURCE: FINGERNAIL SPDESC: ORDERED: Fungal Cult Skn COMMENTS: RIGHT THUMB NAIL Procedure Result Verified Site Fungal Cult Skin/Hair/Nails Final 01/14/15- 1145 ML No Growth Week 4 * ML - MAIN LAB ([facility]) . END OF REPORT * ML = Testing performed at Main Lab DEPARTMENT OF PATHOLOGY, [address] [place] [address] Brandon Quintana M.D. Director [facility] # [id number] SOURCE: THUMB, RIGHT THUMB NAIL SWAB MYCOBACTERIAL CULTURE FINAL No Growth after 60 days of incubation. Test Performed by: [address] [address] Manager Sas: Grant Christianson II, M.D., Ph.D. 10 Because [...] dialysis) Procedures Date Code Description Status 01/24/2019 32685 EKG Tracing & Interpretation Completed 10/27/2018 45598 Inject Tendon Sheath Or Ligament Aponeurosis Eg Completed Plantar Fascia 04/12/2018 00911 EKG Tracing & Interpretation Completed 03/08/2017 40441 EKG Tracing & Interpretation Completed 05/13/2016 91362 ECHO Stress Test Incl Perf Contiuous ekg Monitoring Completed W/Phys Superv 04/28/2016 07935 ECHO Transthoracic, Real-Time 2D With Doppler And Completed Color Flow 03/18/2016 87614 EKG Tracing & Interpretation Completed 07/02/2015 22997 Trigger Finger Release Incision / Tendon Sheath Completed Incision 07/02/2015 62158 Trigger Finger Release Incision / Tendon Sheath Completed Incision 12/21/2014 53807 Carpal Tunnel Release Completed 12/21/2014 32508 Biopsy Nail Unit, Any Method Completed 08/01/2014 11611 EKG Tracing & Interpretation Completed 01/22/2014 69488 EKG Tracing & Interpretation Completed 12/19/2013 57461 Left Heart Cath. Incl S/I Coronaries, Angio S/I V Gram Completed If Done 12/19/2013 89485 EKG, Interpretation Only Completed 12/11/2013 60975 Treadmill Interp/Report Only Completed 12/11/2013 50971 Stress Test Supervsn W/Out I/R Completed 11/29/2013 22852 ECHO Transthoracic, Real-Time 2D With Doppler And Completed Color Flow 11/14/2013 96449 Stress Test Completed 12/09/2009 67575 Rad Exam; Hand Comp Completed 12/09/200994590 Inject Tendon Sheath Or Ligament Aponeurosis Eg Completed Plantar Fascia 04/22/2006 897041272 Bone Mineral Density Test Completed 09/24/2004 40566 ECHO/Stress Completed 09/24/2004 91744 Treadmill Interp/Report Only Completed 09/24/2004 54458 Stress Test Supervsn W/Out I/R Completed Encounters Type Date Location Provider Dx Diagnosis Office Visit 01/24/2019 [facility] Bucky Cohen I25.118 Athscl heart 8:40a Viet Guzman disease of [place] cor art w [facility] pctrs G47.33 Obstructive sleep apnea (adult) (pediatric) E66.9 Obesity, unspecified R07.9 Chest pain, unspecified I10 Essential (primary) hypertension E78.00 Pure hypercholesterolemia, unspecified Office Visit 10/27/2018 [facility] M65.4 Radial styloid 10:30a Services Of Viet Sanonosynovichadd [Calderon] Office Visit 09/30/2018 Pulmonology And Claudia G47.33 Obstructive sleep 9:15a Sleep Services Of KISHOR Strong RN, apnea (adult) [facility]- (pediatric) E66.9 Obesity, unspecified Z68.34 Body mass index (BMI) 34.0-34.9, adult Office Visit 04/12/2018 9:00a [facility] Bucky Cohen G47.33 Obstructive sleep Viet Guzman apnea (adult) (pediatric) R07.9 Chest pain, unspecified I25.118 Athscl heart disease of [place] cor art [facility] pctrs E78.00 Pure hypercholesterolemia, unspecified M79.1 Myalgia Office Visit 10/05/2017 [facility]ology And Claudia G47.33 Obstructive sleep 8:00a Sleep Services Of KISHOR Strong RN, apnea (adult) [facility]- (pediatric) E66.9 Obesity, unspecified Z68.34 Body mass index (BMI) 34.0-34.9, adult Office Visit 03/08/2017 8:40a [facility] Bucky Cohen R07.9 Chest pain, Viet Guzman unspecified I10 Essential (primary) hypertension E78.01 Familial hypercholesterolemia E66.9 Obesity, unspecified Office Visit 10/02/2016 8:30a Pulmonology And Lexii G47.33 Obstructive sleep Sleep Services Of MD Brandie apnea (adult) [facility] (pediatric) E66.09 Other obesity due to excess calories Office Visit 04/07/2016 3:00p [facility] Janell Nieto, I10 Essential (primary) Of [facility] PA hypertension G47.33 Obstructive sleep apnea (adult) (pediatric) R07.9 Chest pain, unspecified E66.09 Other obesity due to excess calories I25.10 Athscl heart disease of [place] coronary artery w/o ang pctrs Office Visit 03/18/2016 2:40p [facility] Bucky Cohen G47.33 Obstructive sleep Viet Guzman apnea (adult) (pediatric) I10 Essential (primary) hypertension R07.9 Chest pain, unspecified E78.0 Pure hypercholesterolemia Office Visit 10/03/2015 8:30a Pulmonology And Lexii G47.33 Obstructive sleep Sleep Services Of MD Brandie apnea (adult) [employer] (pediatric) E66.09 Other obesity due to excess calories Office Visit 06/17/2015 Orthopedic [facility] 727.03 Trigger Finger 11:20a Services Of Viet Sanon Acquired C.M.A. Office Visit 04/03/2015 Pulmonology And Lexiimushtaq Diego, 327.23 Obstructive Sleep 8:15a Sleep Services Of Apnea Adult & [facility] Pediatric Office Visit 12/17/2014 Orthopedic [facility]ane 354.0 Carpal Tunnel 4:00p Services Of Viet Sanon Syndrome C.M.A. 681.02 Onychia & Paronychia Finger Office Visit 08/27/2014 11:45a Pulmonology And Lexii 327.23 Obstructive Sleep Sleep Services Of MD Brandie Apnea Adult & [facility] Pediatric Office Visit 08/01/2014 10:40a [facility] Bucky Cohen 786.59 Pain Chest Other Viet Guzman 401.1 Hypertension Benign Office Visit 01/22/2014 Jatin Cohen 794.39 Cardiovascular Study 1:20p Cardiology Viet Guzman Other Abnormal 401.1 Hypertension Benign 786.50 Pain Chest Unspec Office Visit 12/26/2013 Kelley Gonzalez, V58.41 Postoperative Wound 3:30p Cardiology Cesar Llanos FACC, Closure Encounter [employer] AT [facility] Office Visit 11/14/2013 Jatin Cohen 786.50 Pain Chest Unspec 10:30a Cardiology Viet Guzman 401.1 Hypertension Benign Office Visit 08/21/2013 8:30a Jatin Leon 346.90 Migraine Unspec Neurologic Viet Galvez W/O Intractable Services Of [facility] W/O Status Migrainosus 323.9 Unspec Cause Encephalitis, Myelitis, Encephalomyelitis Office Visit 08/23/2012 10:45a [facility] Jillian Galvez, 784.0 Headache Services Of [facility] Unique.DJosiah 323.9 Unspec Cause Encephalitis, Myelitis, Encephalomyelitis Office Visit 12/09/2009 10:00a Orthopedic Iva Escobar, 727.05 Tenosynovitis Hand Services Of [place] & Wrist Other C.M.A. Plan of Treatment Future Appointment(s):07/03/2019 8:00 am - Sloane Sanon M.D. at Orthopedic Services Of C.M.A.10/02/2019 9:00 am - Claudia Strong DNP, RN, REWINDER-BC at Pulmonology And Sleep Services Of [facility]
--- NOTE | 2019-06-21 09:20 | ED ---
HPI Chest Pain - HPI Summary HPI Summary: Patient is a 63 y/o F presenting to ED with complaints of lower sternal/ epigastric pain. She reports that she had onset of "heartburn" yesterday, . This morning, 06/21/19, around 0600, patient had onset of chest pain characterized as a pressure. She reports radiation of pain to her back and upper chest/thoracic area. She states that she took Tums, applied a nitro patch , and drank both hot and cold liquids. An hour after doing so, Sx persisted. At present, she reports pain is reduced and she describes her current pain as an ache. She rates initial onset of pain 7-8/10 at its worst and states her present pain is 2/10. Patient has Hx of cardiac catheterization and states that she has "small vessels". As a result, she states that she gets chest pain with exertion. She denies SOB, N/V/D, and urinary Sx. Patient states that she tends to sweat easily. Hx of fibromyaglia, HTN, hypothyroidism, and HLD is endorsed. No Hx of diabetes, HI, and stents is reported. Patient states that she may have taken a baby ASA this morning, but notes that she has a lot of meds and did not track which ones she took this morning. Home medications and allergies are reviewed. - History of Current Complaint Chief Complaint: EDChestPainROMI Time Seen by Provider: 06/21/19 09:05 Hx Obtained From: Patient Onset/Duration: Started Hours Ago, Still Present Timing: Constant, Lasting Hours Initial Severity: Severe Current Severity: Mild Pain Intensity: 2 Pain Scale Used: 0-10 Numeric Chest Pain Location: Lower Sternal Chest Pain Radiates: Yes Chest Pain Radiates To:: Back, Other - upper thoracic area Character: Dull/Aching, Pressure/Squeezing Associated Signs and Symptoms: Positive: Chest Pain, Diaphoresis - patient states that she sweats easily, Other: - negative - diarrhea, urinary Sx. Negative: Shortness of Breath, Nausea, Vomiting - Allergy/Home Medications Allergies/Adverse Reactions: Allergies Allergy/AdvReac Type Severity Reaction Status Date / Time No Known Allergies Allergy Verified 06/21/19 09:52 Home Medications: Home Medications Bupropion XL* [Wellbutrin XL *] 300 mg PO DAILY 06/21/19 [History Confirmed 02/03] Calcium Polycarbophil TAB* [Fibercon TAB*] 625 mg PO DAILY 06/21/19 [History Confirmed 06/21/19] Cholecalciferol TAB* [Vitamin D TAB*] 2,000 units PO EVERY OTHER DAY 06/21/19 [ History Confirmed 06/21/19] Cyanocobalamin TAB* [Vitamin B12 TAB*] 100 mcg PO DAILY 06/21/19 [History Confirmed 06/21/19] Cyclobenzaprine HCl 10 mg PO TID PRN 06/21/19 [History Confirmed 06/21/19] Levothyroxine TAB* [Synthroid TAB*] 75 mcg PO DAILY 06/21/19 [History Confirmed 06/21/19] Nitroglycerin 0.2 MG/HR PATCH* [Nitroglycerin 5 MG PATCH*] 1 patch TRANSDERM DAILY 06/21/19 [History Confirmed 06/21/19] Nitroglycerin TAB 0.4 MG* 0.4 mg SL Q5M PRN MDD 3 06/21/19 [History Confirmed ] Ranitidine TAB (NF) [Zantac TAB (NF)] 150 mg PO BID 06/21/19 [History Confirmed 06/21/19] Verapamil HCl [Verapamil HCl ER] 240 mg PO DAILY 06/21/19 [History Confirmed 02/03] PMH/Surg Hx/FS Hx/Imm Hx Endocrine/Hematology History: Reports: Hx Thyroid Disease Denies: Hx Anticoagulant Therapy, Hx Bone Marrow Disease, Hx Diabetes, Hx Systemic Lupus Erythematosus, Hx Sickle Cell Disease, Hx Anemia Cardiovascular History: Reports: Hx Angina, Hx Hypercholesterolemia, Hx Hypertension - ON MEDS, VERAPAMIL, Hx Peripheral Vascular Disease - DURING EXCERCISE, GOES AWAY BY ITSELF Denies: Hx Congestive Heart Failure, Hx Coronary Artery Disease, Hx Myocardial Infarction, Hx Pacemaker/ICD, Other Cardiovascular Problems/Disorders Respiratory History: Reports: Hx Sleep Apnea Denies: Hx Asthma, Hx Chronic Obstructive Pulmonary Disease (COPD), Hx Pulmonary Embolism, Other Respiratory Problems/Disorders GI History: Reports: Hx Gastroesophageal Reflux Disease, Hx Irritable Bowel, Other GI Disorders - GERD Denies: Hx Cirrhosis, Hx Jaundice History: Denies: Hx Kidney Infection, Hx Kidney Stones, Hx Renal Disease Musculoskeletal History: Reports: Hx Arthritis, Hx Back Problems - Cervical Pain , Hx Fibromyalgia, Hx Tendonitis - HANDS, ARMS, Other Musculoskeletal History - FIBROMYALGIA Sensory History: Reports: Hx Cataracts Denies: Hx Contacts or Glasses, Hx Hearing Aid Comment Only: Hx Eye Injury - spontaneous torn retina Opthamlomology History: Reports: Hx Cataracts Denies: Hx Contacts or Glasses Comment Only: Hx Eye Injury - spontaneous torn retina Neurological History: Reports: Hx Headaches, Hx Migraine, Hx Nerve Disease - FIBROMYALGIA, Other Neuro Impairments/Disorders - PAIN CLINIC PT, TRANSVERSE MYALITIS X2 Denies: Hx Dementia, Hx Seizures Psychiatric History: Reports: Hx Anxiety, Hx Depression Denies: Hx Panic Disorder, Hx Substance Abuse - Cancer History Hx Chemotherapy: No Hx Radiation Therapy: No - Surgical History Surgery Procedure, Year, and Place: hysterectomy AND OOPHRECTOMY 1999;. 1980 + 1985 exploratory laparotomy wedge resection of ovary X2;. 1991 cholecysectomy, . BILATERAL CATARACT,RIGHT EYE RETINAL SURGERY IN 2010,. trigger fingerrelease 2005 -BILATERAL HANDS. PARTIAL THYROIDECTOMY 02/2014, [facility],. CARPAL TUNNEL- RIGHT December Hx Anesthesia Reactions: No Infectious Disease History: No Infectious Disease History: Denies: Hx Hepatitis, Hx Human Immunodeficiency Virus (HIV), Hx of Known/ Suspected MRSA, Traveled Outside the [place] in Last 30 Days - Family History Known Family History: Positive: Hypertension - Social History Alcohol Use: None Substance Use Type: Reports: None Substance Use Comment - Amount & Last Used: norco Smoking Status (MU): Never Smoked Tobacco Have You Smoked in the Last Year: No Review of Systems Positive: Skin Diaphoresis - patient states that she sweats easily Positive: Chest Pain - lower sternal/epigastric Negative: Shortness Of Breath Negative: Vomiting, Diarrhea, Nausea Positive: no symptoms reported - no urinary Sx reported All Other Systems Reviewed And Are Negative: Yes Physical Exam - Summary Physical Exam Summary: General: Well-developed, Obese female. No acute distress. HEENT: Normocephalic, Atraumatic. Eyes: Conjuctiva normal, PERRL. Ears: TMs within normal limits. Nares: (-) discharge, (-) erythema. Oropharynx: Clear, mucous membranes moist, (-) exudates. Neck: Soft, FROM, (-) lymphadenopathy, (-) thyromegaly, (-) JVD. Cardiovascular: Normal sinus rhythm, (-) murmur. Lungs: Clear to auscultation bilaterally (-) wheezes, (-) rales, (-) rhonchi. Abdomen: Soft, non-tender, non-distended, (-) organomegaly, normal bowel sounds. Back: (-) CVA tenderness Extremities: No edema. Skin: Warm, dry, (-) rash. Neuro: Alert and oriented x3, no focal deficits. Psychiatric: Mood normal, affect normal. Triage Information Reviewed: Yes Vital Signs On Initial Exam: Initial Vitals Temp Pulse Resp BP Pulse Ox 97.1 F 85 18 173/82 97 06/21/19 09:02 06/21/19 09:02 06/21/19 09:02 06/21/19 09:02 06/21/19 09:02 Vital Signs Reviewed: Yes Diagnostics - Vital Signs Vital Signs Temp Pulse Resp BP Pulse Ox 06/21/19 09:02 97.1 F 85 18 173/82 97 - Laboratory Result Diagrams: 06/21/19 09:35 06/21/19 12:30 Lab Statement: Any lab studies that have been ordered have been reviewed, and results considered in the medical decision making process. - Radiology CXR Radiology Interpretation Completed By: Radiologist Summary of Radiographic Findings: IMPRESSION: HYPERINFLATION, CONSISTENT WITH COPD. NO ACTIVE CARDIOPULMONARY DISEASE. THIS REPORT WAS REVIEWED BY DR. SANCHEZ. - EKG 0857 Cardiac Rate: NL - rate of 84 BPM EKG Rhythm: Sinus Rhythm Summary of EKG Findings: EKG showed NSR with rate of 84 BPM, no STEMI. This EKG was reviewed and interpreted by Dr. Sanchez. Re-Evaluation - Re-Evaluation First Eval Re-Evaluation Time: 13:14 Change: Improved Comment: She is tolerating PO. Sx are resolved. Patient will be discharged to home and will follow up with PCP for possible stress test. Strict return precautions given. Patient understands and agrees with plan. Chest Pain Course/Dx - Course Course Of Treatment: Patient is a 63 y/o F presenting to ED with complaints of lower sternal/epigastric pain. She reports that she had onset of "heartburn" yesterday, 06/20/19. This morning, 06/21/19, around 0600, patient had onset of chest pain characterized as a pressure. She reports radiation of pain to her back and upper chest/thoracic area. She states that she took Tums, applied a nitro patch, and drank both hot and cold liquids. An hour after doing so, Sx persisted. At present, she reports pain is reduced and she describes her current pain as an ache. She rates initial onset of pain 7-8/10 at its worst and states her present pain is 2/10. Patient has Hx of cardiac catheterization and states that she has "small vessels". Patient is obese, but otherwise has an unremarkable physical exam. EKG showed NSR with rate of 84 BPM, no STEMI. CXR IMPRESSION: HYPERINFLATION, CONSISTENT WITH COPD. NO ACTIVE CARDIOPULMONARY DISEASE. Patient received ASA 324 mg PO. First and second troponin were negative. Bloodwork was otherwise unremarkable. She is tolerating PO. Sx are resolved. Patient will be discharged to home and will follow up with PCP for possible stress test. Strict return precautions given. Patient understands and agrees with plan. - Diagnoses Provider Diagnoses: Chest pain Discharge ED - Sign-Out/Discharge Documenting (check all that apply): Patient Departure - discharge Patient Received Moderate/Deep Sedation with Procedure: No - Discharge Plan Condition: Stable Disposition: HOME Patient Education Materials: Chest Pain (ED) Referrals: Mickey Ortez MD [Primary Care Provider] - 3 Days Additional Instructions: Please follow up with your primary care physician within three days to discuss possible stress test. Please return to ED for any new or worsening symptoms. - Billing Disposition and Condition Condition: STABLE Disposition: Home - Attestation Statements Document Initiated by Chelsea: Yes Documenting Scribe: KRANTHI GARCIA Provider For Whom Chelsea is Documenting (Include Credential): SABINE SANCHEZ MD Scribe Attestation: IKRANTHI, scribed for SABINE SANCHEZ MD on 06/21/19 at 1401. Scribe Documentation Reviewed: Yes Provider Attestation: The documentation as recorded by the KRANTHI byers accurately reflects the service I personally performed and the decisions made by me, SABINE SANCHEZ MD Status of Scribe Document: Viewed
[2019-06-21 09:41] LABS: ABS Basophils 0.1 10^3/ul (0-0.2); ABS Eosinophils 0.3 10^3/ul (0-0.6); ABS Lymphocytes 1.6 10^3/ul (1.0-4.8); ABS Monocytes 0.6 10^3/ul (0-0.8); ABS Neutrophils 6.4 10^3/ul (1.5-7.7); Eosinophil % 2.9 %; Hematocrit 43 % (35-47); Hemoglobin 14.5 g/dL (12.0-16.0); Lymphocyte % 17.7 %; Mean Corpuscular HGB Conc 34 g/dL (31-36); Mean Corpuscular Hemoglobin 30 pg (27-31); Mean Corpuscular Volume 88 fL (80-97); Platelet Count 272 10^3/uL (150-450); Red Blood Count 4.86 10^6 /uL (3.70-4.87); Red Cell Distribution Width 14 % (10-15); White Blood Count 8.9 10^3/uL (3.5-10.8)
[2019-06-21] MEDS: Aspirin 81 mg CHEW TAB* 81 MG TAB.CHEW PO ONE (09:48)
[2019-06-21 09:58] LABS: ALT 24 U/L (7-52); Albumin 4.3 g/dL (3.2-5.2); Albumin/Globulin Ratio 1.6 (1-3); Alkaline Phosphatase 92 U/L (34-104); Blood Urea Nitrogen 16 mg/dL (6-24); CO2 Carbon Dioxide 28 mmol/L (22-32); Calcium 9.5 mg/dL (8.6-10.3); Chloride 104 mmol/L (101-111); EGFR African American 82.9 (>60); EGFR Non-African American 68.5 (>60); Globulin 2.7 g/dL (2-4); Glucose 86 mg/dL (70-100); Sodium 138 mmol/L (135-145)
[2019-06-21 10:09] LABS: Anion Gap 6 mmol/L (2-11)
[2019-06-21 13:06] LABS: Potassium Redraw 3.6 mmol/L (3.5-5.0)
[2019-06-21 13:33] VITALS: BP 131/77
== END 2019-06-21 13:33 | disposition home or self-care (01) ==
LOC: ED 08:54
DX: R07.9 Chest pain, unspecified (principal); E78.00 Pure hypercholesterolemia, unspecified; E03.9 Hypothyroidism, unspecified; I10 Essential (primary) hypertension; K21.9 Gastro-esophageal reflux disease without esophagitis; F41.9 Anxiety disorder, unspecified; F32.9 Major depressive disorder, single episode, unspecified; Z79.82 Long term (current) use of aspirin; Z79.899 Other long term (current) drug therapy
CPT/HCPCS: 36415; 71046; 80053; 84484; 85025; 85610; 93005; 99283; A9270-GY

== ENCOUNTER 2020-04-30 08:57 | Observation (INO) ==
[~2020-04-30 08:57] MED LIST: Buffered Lidocaine 1% SYRIN 1 ml INTRADERM ONE; Lactated Ringers 1000 ml BAG 1,000 ML IV SCH
[2020-04-30] MEDS ORDERED: Propofol 10 MG/ML 20 ML BTL ONE (08:59)
[2020-04-30] MEDS ORDERED: ceFAZolin 2 GM PREMIX 2 GM/50 ML BAG ONE (09:12)
[2020-04-30] MEDS ORDERED: Buffered Lidocaine 1% SYRIN 1 ml INTRADERM ONE (09:12)
[2020-04-30] MEDS ORDERED: EPHEDrine (Pressors) 50 MG/ML VIAL ONE (09:36)
[2020-04-30] MEDS ORDERED: Sterile Water for Inj 10 ML ONE (09:36)
[2020-04-30] MEDS ORDERED: Ondansetron 4 mg VIAL 2 MG/ML 2 ml VIAL IV PRN ×2 (09:58→13:54)
[2020-04-30] MEDS ORDERED: Naloxone 0.4 mg VIAL 0.4 mg/ml 1 ml VIAL IV PRN (09:58)
[2020-04-30] MEDS ORDERED: diPHENhydraMINE IV 50 MG/ML 1 ml VIAL (BENADRYL) IV PRN ×2 (09:58→13:54)
[2020-04-30] MEDS ORDERED: HYDROmorphone 1 MG/1 ML SYRINGE IV PRN (09:58)
[2020-04-30] MEDS ORDERED: Bupivacaine 0.5% SDV PF 30ML VIAL ONE (10:51)
[2020-04-30] MEDS ORDERED: Midazolam 5 mg/5 ml VIAL 1 mg/ml 5 ml VIAL (5 mg) ONE (10:51)
[2020-04-30] MEDS ORDERED: fentaNYL 100 mcg/2 ml 50 MCG/ML VIAL ONE (10:51)
[2020-04-30] MEDS ORDERED: ROPIVACAINE 5 MG/ML 30 ML BTL (0.5%) ONE ×2 (10:51→11:15)
[2020-04-30] MEDS ORDERED: Ondansetron 4 mg VIAL 2 MG/ML 2 ml VIAL ONE (10:52)
[2020-04-30] MEDS ORDERED: Metoclopramide 5 MG/ML VIAL (10 mg) ONE (10:52)
[2020-04-30] MEDS ORDERED: Dexamethasone IV 4 MG/ML VIAL 1 ml VIAL ONE (10:52)
[2020-04-30] MEDS ORDERED: Ropivacaine 0.2% 2 MG/ML VIAL ONE (11:13)
[2020-04-30] MEDS ORDERED: Phenylephrine 40 mcg/mL 10mL (400mcg) SYRINGE ONE (12:40)
[2020-04-30] MEDS ORDERED: Morphine 2 MG/ML SYRINGE IV PRN (13:54)
[2020-04-30] MEDS ORDERED: oxyCODONE/Acetamin 5/325 mg TAB PO PRN ×2 (13:54)
[2020-04-30] MEDS ORDERED: Magnesium Hydroxide LIQ 30 ML UDC PO PRN (13:54)
[2020-04-30] MEDS ORDERED: diPHENhydraMINE 25 mg TAB PO PRN (13:54)
[2020-04-30] MEDS ORDERED: Lactulose 30 ml UDC PO PRN (13:54)
[2020-04-30] MEDS ORDERED: Ondansetron ODT 4 mg TAB 4 MG TAB PO PRN (13:54)
[2020-04-30] MEDS: Lactated Ringers 1000 ml BAG 1,000 ML IV SCH (15:35)
[2020-04-30] MEDS: ceFAZolin 1 GM ADVAN 1 GM in NS 0.9% 50 ML 50 ML IVPB SCH (17:16)
[2020-04-30] MEDS: Magnesium Hydroxide LIQ 30 ML UDC PO SCH (21:14)
[2020-05-01] MEDS ORDERED: Polyethylene Glycol 3350 17 GM PACKET PO PRN (00:01)
[2020-05-01] MEDS: Lactated Ringers 1000 ml BAG 1,000 ML IV SCH (02:01)
[2020-05-01] MEDS: ceFAZolin 1 GM ADVAN 1 GM in NS 0.9% 50 ML 50 ML IVPB SCH ×2 (02:03→10:28)
[2020-05-01 07:04] LABS: Hematocrit 33 % (35-47); Hemoglobin 11.3 g/dL (12.0-16.0); Mean Platelet Volume 8.3 fL (7.4-10.4); Platelet Count 225 10^3/uL (150-450)
[2020-05-01 07:43] LABS: Calcium 8.4 mg/dL (8.6-10.3); Potassium 3.7 mmol/L (3.5-5.0)
[2020-05-01 07:49] LABS: BUN/Creatinine Ratio 15.6 (8-20); EGFR African American 76.3 (>60)
[2020-05-01] MEDS: Magnesium Hydroxide LIQ 30 ML UDC PO SCH (08:37)
[2020-05-01] MEDS ORDERED: Nitroglycerin 0.2 mg/hr PATCH (5 mg) TRANSDERM SCH (09:00)
[2020-05-01] MEDS ORDERED: DULoxetine DR 60 mg CAP PO SCH (09:00)
[2020-05-01] MEDS ORDERED: CMCS: Rosuvastatin 5 mg TAB (NF) PO SCH (09:00)
[2020-05-01] MEDS ORDERED: Vitamin THERAPEUTIC TAB PO SCH (09:00)
[2020-05-01 15:25] VITALS: BP 152/74
== END 2020-05-01 18:45 | disposition home or self-care (01) ==
LOC: INTOOBSV 08:57 → AA 08:57 → SSU 13:54
PROVIDERS: ADMIT Orthopaedic Surgery Adult Reconstructive Orthopaedic Surgery; ATTEND Orthopaedic Surgery Adult Reconstructive Orthopaedic Surgery

== ENCOUNTER 2022-12-01 08:15 | Observation (INO) ==
[~2022-12-01 08:15] MED LIST changes: +ceFAZolin 2 GM PREMIX 2 GM/50 ML BAG ONE
[2022-12-01] MEDS ORDERED: fentaNYL 100 mcg/2 ml 50 MCG/ML VIAL ONE ×2 (08:55→10:15)
[2022-12-01] MEDS ORDERED: Midazolam 2 mg/2 ml VIAL 1 mg/ml 2 ml VIAL (2 mg) ONE ×2 (08:55→10:15)
[2022-12-01] MEDS ORDERED: Ondansetron 4 mg VIAL 2 MG/ML 2 ml VIAL ONE (09:49)
[2022-12-01] MEDS ORDERED: Naloxone 0.4 mg VIAL 0.4 mg/ml 1 ml VIAL IV PRN (10:03)
[2022-12-01] MEDS ORDERED: fentaNYL 100 mcg/2 ml 50 MCG/ML VIAL IV PRN (10:03)
[2022-12-01] MEDS ORDERED: Ondansetron 4 mg VIAL 2 MG/ML 2 ml VIAL IV PRN ×2 (10:03→12:25)
[2022-12-01] MEDS ORDERED: ROPIVACAINE 5 MG/ML 30 ML BTL (0.5%) ONE (10:15)
[2022-12-01] MEDS ORDERED: Ropivacaine 5 MG/ML 20 ML VIAL 0.5% (100 MG) ONE (10:25)
[2022-12-01] MEDS ORDERED: Dexamethasone IV 4 MG/ML VIAL 1 ml VIAL ONE (11:27)
[2022-12-01] MEDS ORDERED: Propofol 10 MG/ML 20 ML BTL ONE (11:31)
[2022-12-01] MEDS ORDERED: Acetaminophen IV 1 GM/100ML 1,000 MG/100 ML BAG IV ONE (11:57)
[2022-12-01] MEDS ORDERED: Lactulose 30 ml UDC PO PRN (12:25)
[2022-12-01] MEDS ORDERED: Ondansetron ODT 4 mg TAB 4 MG TAB PO PRN (12:25)
[2022-12-01] MEDS ORDERED: Magnesium Hydroxide LIQ 30 ML UDC PO PRN (12:25)
[2022-12-01] MEDS ORDERED: Morphine 2 MG/ML SYRINGE IV PRN (12:25)
[2022-12-01] MEDS: Lactated Ringers 1000 ml BAG 1,000 ML IV SCH (16:03)
[2022-12-01] MEDS: ceFAZolin 1 GM ADVAN 1 GM in NS 0.9% 50 ML 50 ML IVPB SCH (19:54)
[2022-12-01] MEDS: Magnesium Hydroxide LIQ 30 ML UDC PO SCH (19:59)
[2022-12-02] MEDS: Lactated Ringers 1000 ml BAG 1,000 ML IV SCH (02:30)
[2022-12-02] MEDS: ceFAZolin 1 GM ADVAN 1 GM in NS 0.9% 50 ML 50 ML IVPB SCH ×2 (04:12→11:35)
[2022-12-02 06:18] LABS: Hematocrit 33 % (35-47); Mean Platelet Volume 8.4 fL (7.4-10.4); Platelet Count 231 10^3/uL (150-450)
[2022-12-02 06:36] LABS: Calcium 8.7 mg/dL (8.6-10.3); Creatinine, Serum 0.97 mg/dL (0.51-0.95); Potassium 3.8 mmol/L (3.5-5.0)
[2022-12-02] MEDS: Magnesium Hydroxide LIQ 30 ML UDC PO SCH (07:56)
[2022-12-02] MEDS ORDERED: Vitamin THERAPEUTIC TAB PO SCH (09:00)
[2022-12-02] MEDS ORDERED: DULoxetine DR 60 mg CAP PO SCH (09:00)
[2022-12-02 11:42] VITALS: BP 132/77
== END 2022-12-02 12:55 | disposition home or self-care (01) ==
LOC: AA 08:15 → INTOOBSV 08:15 → SSU 15:43
PROVIDERS: ADMIT Orthopaedic Surgery Adult Reconstructive Orthopaedic Surgery; ATTEND Orthopaedic Surgery Adult Reconstructive Orthopaedic Surgery